=== PATIENT | male | born 1950 | race Caucasian/White ===

== ENCOUNTER → 2023-09-27 08:14 | Outpatient (REF) | payer MEDICARE, SELFPAY | LOC: DHCBS HW 08:14 | PROVIDERS: ATTENDING PHYSICIAN Internal Medicine Cardiovascular Disease; FAMILY PHYSICIAN Emergency Medicine | DX: I34.0 Nonrheumatic mitral (valve) insufficiency (principal) | CPT/HCPCS: 93306 ==

== ENCOUNTER 2023-11-17 15:51 | Emergency (ER) | payer MEDICARE, SELFPAY ==
[2023-11-17 15:53] VITALS: BP 150/93; BMI 29.6
[2023-11-17 18:28] LABS: % Basophils 0.7 % (0-2); % Eosinophils 2.7 % (0-6); % Immature Granulocytes 0.3 % (0-0.5); % Lymphocytes 23.6 % (20.5-51.1); % Monocytes 15.2 % (1.7-9.3); % Neutrophils 57.5 % (42.2-75.2); Absolute Basophils 0.1 10^3/uL (0-0.2); Absolute Eosinophils 0.2 10^3/uL (0-0.7); Absolute Lymphocytes 1.7 10^3/uL (1.2-3.4); Absolute Monocytes 1.1 10^3/uL (0.1-0.6); Hematocrit 38.8 % (39.0-52.0); Hemoglobin 13.6 g/dL (13.0-18.0); Mean Corp Hgb Conc. 35.1 g/dL (33.0-37.0); Mean Corpuscular Hgb 31.2 pg (27.0-31.0); Mean Platelet Volume 9.7 fL (7.4-10.4); Nucleated Red Blood Cells % 0 % (-); Platelet Count 183 10^3/uL (130-400); Red Blood Cell Count 4.36 10^6/uL (4.70-6.10)
[2023-11-17 18:59] LABS: ALT (SGPT) 28 U/L (0-50); AST (SGOT) 35 U/L (17-59); Albumin 3.8 g/dl (3.5-5.0); Alkaline Phosphatase 79 U/L (38-126); Blood Urea Nitrogen 21 mg/dl (9-20); Calcium 9.1 mg/dl (8.4-10.2); Carbon Dioxide 30 mmol/L (22-30); Chloride 105 mmol/L (98-107); Estimated Creatinine Clearance 72 ml/min; Glucose 98 mg/dl (70-99); Potassium 4.5 mmol/L (3.5-5.1); Sodium 137 mmol/L (135-145); Total Bilirubin 0.5 mg/dl (0.2-1.3); eGFR > 60.00
--- NOTE | 2023-11-17 19:08 | ED.GENMED ---
History of Present Illness
General
Chief Complaint: Extremity Pain (non-traumatic)
Time Seen by Provider: 11/17/23 18:04
Travel History
Have you had any contact with someone who has COVID-19?: No
Do you have any symptoms of coronavirus? Fever > 100 degrees, chills, cough, shortness of breath, sore throat, loss of taste or smell, muscle aches, or headache?: No
History of Present Illness
History of Present Illness:
73-year-old male with history of A-fib on Xarelto presents to the emergency department for evaluation of right knee discomfort and swelling. He states he had a minor fall 4 days ago and suffered an abrasion to the lateral inferior knee. He has
been able to walk but is noticed increased redness and is worried about an infection. Denies any fevers or chills.
Past History
Past History
ED Past Medical History: Arrthythmia (afib/flutter), CHF, GERD (hiatel hernia), HTN, Hypercholesterolemia and Other (RA on biologics, Pericardiac effusion sec to Coxsackie virus, PNA, Hiatal hernia, esophageal strictures. )
ED Past Surgical History: Cholecystectomy, Orthopedic (Bilateral knee replacements, right wrist surgery) and Other (Hernia repair)
Social History
Tobacco: Non-smoker
Alcohol: Occasional
Personal:
Living: with family
Employment: Retired
Family History
Family History: Other (Noncontributory)
Review of Systems
Review of Systems
Allergies reviewed?: Yes
All Other Systems: ROS reviewed and negative except as documented in HPI and ROS
Phy Exam
Physical Exam
Physical Exam:
GEN: Well appearing, NAD, WDWN
HEENT: Oral mucosa moist, no scleral icterus
Cardiac: Regular rate
Lung: No respiratory distress, no tachypnea
MSK: 3 to 4 cm hematoma to the lateral infrapatellar knee with overlying abrasion, no discharge. There is mild erythema anteriorly to the knee with no obvious joint effusion. Passive range of motion of the right knee is normal without pain
Skin: Good color, no pallor or jaundice, no rashes
Neuro: AO x3, moves all extremities freely
Psych: Calm, cooperative
Course
Orders/Labs/Results
Orders:
Orders
11/17/23 15:53
Knee, Right 4 or More Views [CR Knee- Right 4 Or More View*] Urgent
Comment:
Reason For Exam: PAIN
11/17/23 18:23
Complete Blood Count/With Diff Urgent
Comprehensive Metabolic Panel Urgent
Wound Culture [Wound/Abscess/Other Culture] Urgent
YUNIOR Source: Knee
Specimen Description: Right
Date Specimen was Collected: 11/17/23
Time Specimen was Collected: 18:22
11/17/23 19:07
Cephalexin Monohydrate [Keflex] 500 mg PO NOW STA
Sulfamethox./Trimethoprim Ds [Bactrim Ds 800 mg/160 mg] 1 tablet PO NOW STA
Abnormal Lab Results
11/17/23
18:23
RBC 4.36 L 10^6/uL
(4.70-6.10)
Hct 38.8 L %
(39.0-52.0)
MCH 31.2 H pg
(27.0-31.0)
Absolute Monos (auto) 1.1 H 10^3/uL
(0.1-0.6)
Monocytes % 15.2 H %
(1.7-9.3)
BUN 21 H mg/dl
(9-20)
11/17/23 18:23
11/17/23 18:23
Vital Signs
Initial and Last Documented VS:
Initial Vital Signs
Temp Pulse Resp BP Pulse Ox
97.8 F 64 16 150/93 98
11/17/23 15:53 11/17/23 15:53 11/17/23 15:53 11/17/23 15:53 11/17/23 15:53
Last Documented Vital Signs
Temp Pulse Resp BP Pulse Ox
97.8 F 64 16 150/93 98
11/17/23 15:53 11/17/23 15:53 11/17/23 15:53 11/17/23 15:53 11/17/23 15:53
MDM/Problems Addressed
MDM/Problems Addressed:
Patient's labs are reassuring, he is afebrile with no evidence for joint effusion. Small hematoma was aspirated under sterile conditions and sent for culture, given that the patient is immunocompromised on Remicade and has knee hardware we will
start him on broad-spectrum antibiotics empirically, ED return parameters discussed
*Critical Care Note
Total Time (30-74mins, 75-104mins- exclusive of procedures): Not Applicable
ED Attending Note
-
Portions of this chart may have been created with voice recognition software.� Occasional wrong word or��sound alike� substitutions may have occurred due to the inherent limitations of voice recognition software.
Discharge Plan
Departure
Patient Disposition: Home (Routine Discharge)
Date of Disposition: 11/17/23
Time of Disposition: 19:08
Patient with high blood pressure during this ER visit?: No
Discharge Problem:
Hematoma of right knee region
Instructions: Hematoma
Prescriptions:
New
cephalexin 500 mg capsule
500 mg PO Q8H 7 Days Qty: 21 0RF
sulfamethoxazole-trimethoprim [Bactrim DS] 800-160 mg tablet
1 tab PO BID Qty: 14 0RF
No Action
fish oil-dha-epa 1 EACH capsule
1 tab PO DAILY
metoprolol succinate 100 MG tablet extended release 24 hr
100 mg PO HS
Enbrel 50 MG/ML syringe
50 mg SC CALHOUN
omeprazole magnesium [Prilosec OTC] 20 MG tablet,delayed release (DR/EC)
20 mg PO DAILY
diltiazem HCl 120 MG capsule,extended release 24hr
120 mg PO DAILY 0RF
acetaminophen [Tylenol Arthritis] 650 MG tablet extended release
1,300 mg PO Q6HPRN PRN (Reason: fever/ pain)
dextromethorphan-guaifenesin [Mucinex DM] 1 EACH tablet extended release 12 hr
1 tab PO PRN PRN (Reason: cough)
B-complex with vitamin C 1 CAPLET tablet
1 cap PO DAILY
oxymetazoline [Afrin Sinus (oxymetazoline)] 30 SPRAYS/15 ML spray,non-aerosol
1 sprays intranasal PRN PRN (Reason: breathing issues)
cholecalciferol (vitamin D3) 2,000 UNITS tablet
4,000 units PO DAILY
Xarelto 20 MG tablet
10 mg PO QPM
multivitamin with folic acid [Tab-A-Octavio] 1 TABLET tablet
1 tab PO DAILY
aspirin 81 MG tablet,delayed release (DR/EC)
81 mg PO QPM
furosemide 40 MG tablet
40 mg PO DAILY
sulfamethoxazole-trimethoprim 800-160 mg Tablet
1 tab PO BID Qty: 60 0RF
terazosin 1 mg Capsule
2 mg PO HS Qty: 30 0RF
meclizine 25 mg tablet
25 mg PO QID PRN (Reason: dizziness) Qty: 20 0RF
Referrals:
Ghazal Matthews MD [Family Provider] -
Activity Restrictions/Additional Instructions:
There are no clear signs of infection at this time however given her compromised immune system we will treat presumptively given that you have an open wound over the hematoma. Please keep this very clean every day with soap and water, if you
develop increased knee pain or swelling please return to the emergency department for reevaluation
Interventions
Interventions:
*Risk Screen - Suicide Last Done: 11/17/23 15:53
*General Assessment Last Done: 11/17/23 18:08
*Neglect/Abuse Screening Last Done: 11/17/23 15:53
ED- Fall Risk Assessment Last Done: 11/17/23 15:53
*ED COVID-19 Vaccine History Last Done: 11/17/23 15:53
*Nursing Disposition Last Done: 11/17/23 19:31
ED-Musculoskeletal Assessment Last Done: 11/17/23 18:08
ED-Skin Assessment Last Done: 11/17/23 18:08
Discharge Date and Time
Discharge Date/Time: 11/17/23 19:31
Print Language: CAMEROONIAN
[2023-11-17] MEDS: BACTRIM DS 800 MG/160 MG 1 TABLET PO (19:27)
[2023-11-17] MEDS: KEFLEX 500 MG PO (19:27)
== END 2023-11-17 19:31 | disposition home or self-care (01) ==
LOC: EMR 15:51
PROVIDERS: Physician Assistant; EMERGENCY PHYSICIAN Emergency Medicine; FAMILY PHYSICIAN Emergency Medicine
DX: S80.01XA Contusion of right knee, initial encounter (principal); W19.XXXA Unspecified fall, initial encounter; Z79.01 Long term (current) use of anticoagulants
CPT/HCPCS: 99284; 73564; 80053; 85025; 87070; 87205

== ENCOUNTER → 2024-01-03 06:36 | Day surgery (SDC) | payer MEDICARE, SELFPAY | LOC: GI 06:36 | PROVIDERS: ATTENDING PHYSICIAN Internal Medicine; FAMILY PHYSICIAN Emergency Medicine | DX: Z12.11 Encounter for screening for malignant neoplasm of colon (principal); R19.5 Other fecal abnormalities; K64.8 Other hemorrhoids; K55.20 Angiodysplasia of colon without hemorrhage; D12.2 Benign neoplasm of ascending colon; D12.4 Benign neoplasm of descending colon; D12.8 Benign neoplasm of rectum; N40.0 Benign prostatic hyperplasia without lower urinary tract symptoms | CPT/HCPCS: 45385; 88305 ==

== ENCOUNTER → 2024-06-26 09:02 | Outpatient (REF) | payer MEDICARE, SELFPAY | LOC: HWRCS 09:02 | PROVIDERS: ATTENDING PHYSICIAN Internal Medicine Cardiovascular Disease; FAMILY PHYSICIAN Emergency Medicine | DX: I34.0 Nonrheumatic mitral (valve) insufficiency (principal) | CPT/HCPCS: 93306 ==

== ENCOUNTER 2024-07-30 22:28 | Emergency (ER) | payer MEDICARE, SELFPAY ==
[2024-07-30 22:29] VITALS: BP 116/54
[2024-07-30 22:43] LABS: % Basophils 0.4 % (0-2); % Eosinophils 1.8 % (0-6); % Immature Granulocytes 0.3 % (0-0.5); % Lymphocytes 22.9 % (20.5-51.1); % Monocytes 8.7 % (1.7-9.3); % Neutrophils 65.9 % (42.2-75.2); Absolute Eosinophils 0.1 10^3/uL (0-0.7); Absolute Lymphocytes 1.8 10^3/uL (1.2-3.4); Absolute Monocytes 0.7 10^3/uL (0.1-0.6); Absolute Neutrophils 5.1 10^3/uL (1.4-6.5); Hematocrit 41.2 % (39.0-52.0); Hemoglobin 13.6 g/dL (13.0-18.0); Mean Corpuscular Hgb 29.8 pg (27.0-31.0); Mean Corpuscular Volume 90.4 fL (80.0-94.0); Mean Platelet Volume 9.7 fL (7.4-10.4); Nucleated Red Blood Cells % 0.3 % (-); Platelet Count 196 10^3/uL (130-400); Red Blood Cell Count 4.56 10^6/uL (4.70-6.10); Red Cell Dist. Width 14.2 % (11.5-14.5); White Blood Cell Count 7.8 10^3/uL (4.8-10.8)
[2024-07-30 23:04] LABS: ALT (SGPT) 33 U/L (0-50); AST (SGOT) 71 U/L (17-59); Albumin 3.7 g/dl (3.5-5.0); Alkaline Phosphatase 78 U/L (38-126); Blood Urea Nitrogen 19 mg/dl (9-20); Calcium 8.6 mg/dl (8.4-10.2); Carbon Dioxide 27 mmol/L (22-30); Chloride 101 mmol/L (98-107); Glucose 194 mg/dl (70-99); Lipase 86 U/L (23-300); Potassium 3.9 mmol/L (3.5-5.1); Sodium 137 mmol/L (135-145); Total Bilirubin 0.8 mg/dl (0.2-1.3); eGFR > 60.00
[2024-07-31 00:06] VITALS: BP 122/76; BMI 29.6
--- NOTE | 2024-07-31 00:09 | ED.GENMED ---
History of Present Illness
General
Chief Complaint: Abdominal Symptoms
Source: patient
Exam Limitations: none
Time Seen by Provider: 07/30/24 23:41
Nursing documentation reviewed up to this point in time: agreed with
History of Present Illness
History of Present Illness:
This is a 73-year-old gentleman who resides at home with his . He has history of paroxysmal A-fib chronically maintained on Xarelto. History of hypertension, CHF, GERD/hiatal hernia with prior history of esophageal repair, rheumatoid
arthritis, mitral valve insufficiency.
Remote history of cholecystectomy and prior history of esophageal repair.
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 He had a late dinner around 7:45 PM. They returned home around 9 PM and then around 9:45 PM he
developed somewhat abrupt onset of upper abdominal pain, moderate to severe with generalized abdominal discomfort and bloating. Pain was severe accompanied with diaphoresis. He denies nausea nor vomiting, no chest pain or cough no shortness of
breath, no dizziness nor lightheadedness, no back pain. No history of similar episodes of pain. He was worried that he was having a heart attack and called 911. He does admit to frequent belching, burping and en route to the hospital after
several episodes of burping, pain resolved and has not recurred. He states pain lasted approximately 30 minutes. He was not given anything nor did he take anything for discomfort.
Past History
Past History
ED Past Medical History: Arrthythmia (afib/flutter), CHF, GERD (Hiatal hernia/esophageal stricture), HTN, Hypercholesterolemia, Valvular disease (Mitral regurgitation) and Other (RA on biologics, Pericardiac effusion sec to Coxsackie virus, PNA,
Hiatal hernia, esophageal strictures. )
ED Past Surgical History: Cholecystectomy, Orthopedic (Bilateral knee replacements, right wrist surgery) and Other (Hiatal hernia repair)
Social History
Tobacco: Non-smoker
Alcohol: Occasional
Personal:
Living: with family
Employment: Retired
Family History
Family History: Other (Noncontributory)
Phy Exam
Physical Exam
Physical Exam:
GENERAL: 73-year-old gentleman appears his stated age, bright and alert, pleasant, appears in no acute distress.
EYE: anicteric
NECK: Supple, nontender, no meningismus, no significant adenopathy.
ENT: oral mucosa is moist. No rhinorrhea.
CARDIAC: Regular rate and rhythm. Occasional ectopy. No murmur.
LUNGS: Clear breath sounds bilaterally, no acute respiratory distress, no wheezes/rales/rhonchi
ABDOMEN: Rotund, soft, nondistended, very minimal epigastric tenderness with deep palpation only, no r/g, no cvat. normoactive BS.
NEUROLOGICAL: Alert and oriented x3, no focal neuro deficits.
SKIN: Warm and dry, normal color, skin intact. No rash.
MUSCULOSKELETAL: No C/C/E. peripheral pulses are full and equal b/l. No palpable tenderness.
PSYCH: Normal and appropriate interaction.
Course
Orders/Labs/Results
Orders:
Orders
07/30/24 22:36
Complete Blood Count/With Diff Urgent
Comprehensive Metabolic Panel Urgent
Lipase Urgent
07/30/24 22:40
Electrocardiogram (*1) Urgent
Reason for Study: Abdominal Pain
EKG- Treatment ONCE
07/30/24 23:55
Troponin I Urgent
07/30/24 23:56
Bedside Glucose- Treatment ONCE
07/31/24 02:07
Troponin I Urgent
Abnormal Lab Results
07/30/24
22:36
RBC 4.56 L 10^6/uL
(4.70-6.10)
Absolute Monos (auto) 0.7 H 10^3/uL
(0.1-0.6)
Glucose 194 H mg/dl
(70-99)
AST 71 H U/L
(17-59)
07/30/24 22:36
07/30/24 22:36
Vital Signs
Initial and Last Documented VS:
Initial Vital Signs
Temp Pulse Resp BP Pulse Ox
98.3 F 57 16 116/54 98
07/30/24 22:29 07/30/24 22:29 07/30/24 22:29 07/30/24 22:29 07/30/24 22:29
Last Documented Vital Signs
Temp Pulse Resp BP Pulse Ox
99.0 F 91 20 115/81 94
07/31/24 00:10 07/31/24 03:15 07/31/24 03:15 07/31/24 03:00 07/31/24 03:15
MDM/Problems Addressed
Differential Diagnosis Includes:
Concern for acute gastritis, GERD, other consideration is common bile duct stone, pancreatitis, ACS, gastroenteritis, ischemic bowel, small bowel obstruction.
Reassuring that pain has resolved within 30 minutes and thus far has not returned.
EKG shows normal sinus rhythm with PACs, right bundle branch block, similar and unchanged from previous.
Labs thus far are unremarkable save for minimally elevated AST. All other LFTs and lipase are normal.
Will check troponin.
As patient is pain-free and comfortable, thus far reassuring labs. At this point no indication for imaging but will continue to observe for return of symptoms.
Chronic conditions affecting care: HTN, Arrhythmia (Paroxysmal atrial fibrillation), Previous abdomnial surgery and Immunosuppressed (Maintained on Enbrel for rheumatoid arthritis)
*Pulse Oximetry
Patient hypoxic: no
*EKG
Interpreted by ED Provider?: Yes
Comparison EKG: no changes (Unchanged from previous July 2022)
Rate: normal
Rhythm: sinus and PAC's
[place]: left axis deviation
Interval: normal interval
QRS Pattern: right bundle branch block
Ischemia: no ischemia
*Applications Support Analyst Interpretation
Rate: normal
Interpretation: normal
Rhythm: sinus and PAC's
*Critical Care Note
Total Time (30-74mins, 75-104mins- exclusive of procedures): Not Applicable
Update Note
Update Note:
04:30
Patient remains comfortable and pain-free since arrival to the ED.
Abdomen is soft and nontender.
Troponin x 2 negative.
Will discharge to home with recommendations he limit his diet to bland foods over the next several days.
Prompt follow-up with PCP for recheck.
ED Attending Note
-
Portions of this chart may have been created with voice recognition software.� Occasional wrong word or��sound alike� substitutions may have occurred due to the inherent limitations of voice recognition software.
Discharge Plan
Departure
Patient Disposition: Home (Routine Discharge)
Date of Disposition: 07/31/24
Time of Disposition: 04:49
Patient with high blood pressure during this ER visit?: No
Condition: Good
Discharge Problem:
Abdominal pain, acute, epigastric
Instructions: Real Diet, Abdominal Pain
Prescriptions:
No Action
fish oil-dha-epa 1 EACH capsule
1 tab PO DAILY
metoprolol succinate 100 MG tablet extended release 24 hr
100 mg PO HS
Enbrel 50 MG/ML syringe
50 mg SC CALHOUN
omeprazole magnesium [Prilosec OTC] 20 MG tablet,delayed release (DR/EC)
20 mg PO DAILY
diltiazem HCl 120 MG capsule,extended release 24hr
120 mg PO DAILY 0RF
acetaminophen [Tylenol Arthritis] 650 MG tablet extended release
1,300 mg PO Q6HPRN PRN (Reason: fever/ pain)
dextromethorphan-guaifenesin [Mucinex DM] 1 EACH tablet extended release 12 hr
1 tab PO PRN PRN (Reason: cough)
B-complex with vitamin C 1 CAPLET tablet
1 cap PO DAILY
oxymetazoline [Afrin Sinus (oxymetazoline)] 30 SPRAYS/15 ML spray,non-aerosol
1 sprays intranasal PRN PRN (Reason: breathing issues)
cholecalciferol (vitamin D3) 2,000 UNITS tablet
4,000 units PO DAILY
Xarelto 20 MG tablet
10 mg PO QPM
multivitamin with folic acid [Tab-A-Octavio] 1 TABLET tablet
1 tab PO DAILY
aspirin 81 MG tablet,delayed release (DR/EC)
81 mg PO QPM
furosemide 40 MG tablet
40 mg PO DAILY
sulfamethoxazole-trimethoprim 800-160 mg Tablet
1 tab PO BID Qty: 60 0RF
terazosin 1 mg Capsule
2 mg PO HS Qty: 30 0RF
meclizine 25 mg tablet
25 mg PO QID PRN (Reason: dizziness) Qty: 20 0RF
cephalexin 500 mg capsule
500 mg PO Q8H 7 Days Qty: 21 0RF
sulfamethoxazole-trimethoprim [Bactrim DS] 800-160 mg tablet
1 tab PO BID Qty: 14 0RF
Referrals:
Ghazal Matthews MD [Family Provider] - Call in 1-3 days for appt
Interventions
Interventions:
*Risk Screen - Suicide Last Done: 07/30/24 22:29
*General Assessment Last Done: 07/30/24 22:29
*Neglect/Abuse Screening Last Done: 07/30/24 22:29
ED- Fall Risk Assessment Last Done: 07/31/24 00:09
*ED COVID-19 Vaccine History Last Done: 07/30/24 22:29
[id number] Assessment Last Done: 07/30/24 23:45
Discharge Date and Time
Print Language: GEORGIAN
[2024-07-31 00:44] LABS: Troponin I < 0.012 ng/ml
[2024-07-31 01:00] VITALS: BP 120/73
[2024-07-31 02:00] VITALS: BP 120/86
[2024-07-31 02:56] LABS: Troponin I < 0.012 ng/ml
[2024-07-31 03:00] VITALS: BP 115/81
[2024-07-31 04:00] VITALS: BP 135/75
== END 2024-07-31 04:55 | disposition home or self-care (01) ==
LOC: EMR 22:28
PROVIDERS: Emergency Medicine; EMERGENCY PHYSICIAN Emergency Medicine; FAMILY PHYSICIAN Emergency Medicine
DX: R10.13 Epigastric pain (principal); E78.00 Pure hypercholesterolemia, unspecified; I11.0 Hypertensive heart disease with heart failure; I50.9 Heart failure, unspecified; K21.9 Gastro-esophageal reflux disease without esophagitis; I48.91 Unspecified atrial fibrillation; M06.9 Rheumatoid arthritis, unspecified; Z79.01 Long term (current) use of anticoagulants; Z90.49 Acquired absence of other specified parts of digestive tract
CPT/HCPCS: 99284; 80053; 83690; 84484; 85025; 93005

== ENCOUNTER → 2025-04-02 11:53 | Outpatient (REF) | payer MEDICARE, SELFPAY | LOC: MRI 3T 11:53 | PROVIDERS: ATTENDING PHYSICIAN Specialist; FAMILY PHYSICIAN Emergency Medicine | DX: R97.20 Elevated prostate specific antigen [PSA] (principal) | CPT/HCPCS: 72197; A9575 ==